=== PATIENT | female | born 1990 | race Hispanic/Latino ===

== ENCOUNTER 2024-12-04 14:52 | Emergency (ER) | payer OTHER, SELFPAY ==
[2024-12-04 14:54] VITALS: BP 118/82
[2024-12-04 15:28] LABS: % Basophils 0.5 % (0-2); % Eosinophils 2.4 % (0-6); % Immature Granulocytes 0.3 % (0-0.5); % Lymphocytes 29.5 % (20.5-51.1); % Monocytes 6.3 % (1.7-9.3); Absolute Basophils 0.1 10^3/uL (0-0.2); Absolute Eosinophils 0.4 10^3/uL (0-0.7); Absolute Immature Granulocytes 0.1 10^3/uL (0-0.05); Absolute Lymphocytes 4.5 10^3/uL (1.2-3.4); Absolute Neutrophils 9.3 10^3/uL (1.4-6.5); Hematocrit 41.5 % (37.0-47.0); Hemoglobin 14.2 g/dL (12.0-16.0); Mean Corp Hgb Conc. 34.2 g/dL (33.0-37.0); Mean Corpuscular Hgb 28.7 pg (27.0-31.0); Mean Platelet Volume 8.8 fL (7.4-10.4); Nucleated Red Blood Cells % 0 %; Platelet Count 322 10^3/uL (130-400); Red Blood Cell Count 4.94 10^6/uL (4.20-5.40); Red Cell Dist. Width 11.9 % (11.5-14.5); White Blood Cell Count 15.3 10^3/uL (4.8-10.8)
[2024-12-04 15:37] LABS: HCG, Serum Qualitative Screen Negative
[2024-12-04 15:41] LABS: ALT (SGPT) 57 U/L (0-35); AST (SGOT) 37 U/L (14-36); Albumin 4.5 g/dl (3.5-5.0); Alkaline Phosphatase 59 U/L (38-126); Blood Urea Nitrogen 6 mg/dl (7-17); Calcium 9.9 mg/dl (8.4-10.2); Carbon Dioxide 22 mmol/L (22-30); Chloride 108 mmol/L (98-107); Glucose 105 mg/dl (70-99); Lipase 151 U/L (23-300); Potassium 3.9 mmol/L (3.5-5.1); Sodium 139 mmol/L (135-145); Total Bilirubin 0.8 mg/dl (0.2-1.3); Total Protein 7.6 g/dl (6.3-8.2); eGFR > 60.00
[2024-12-04 15:51] LABS: COVID-19 Antigen Negative (Negative)
[2024-12-04 18:38] LABS: Lithium 0.8 mmol/L (0.6-1.2)
--- NOTE | 2024-12-04 18:41 | ED.GENMED ---
History of Present Illness
General
Chief Complaint: Abdominal Symptoms
Time Seen by Provider: 12/04/24 16:51
History of Present Illness
History of Present Illness:
33-year-old female with history of diabetes presents the emergency department for evaluation of constipation for the past several days. She also reports intermittent nausea and vomiting. She also notes that she is having frequent bouts of
headache, neck pain, and mid back pain that have been ongoing for the past month. She was seen at [facility] twice in the past month for the symptoms with no definitive diagnosis. Approximate 1 month ago she did have labs done at
[facility], I was able to review these in a limited fashion on the patient's [facility] l[facility] on her phone, she had mild leukocytosis as well as transaminitis. She denies any abdominal pain or chest pain at present. No lower urinary tract
voiding symptoms. She is chronically on lithium, states she had a normal level 2 months ago
Review of Systems
Review of Systems
Allergies reviewed?: Yes
All Other Systems: ROS reviewed and negative except as documented in HPI and ROS
Phy Exam
Physical Exam
Physical Exam:
GEN: Well appearing, NAD, WDWN
HEENT: Oral mucosa moist, no scleral icterus
Cardiac: Regular rate and rhythm, no murmurs
Lung: No respiratory distress, no tachypnea
MSK: No gross deformity or injuries, no midline cervical, thoracic, or lumbar spinal tenderness
Skin: Good color, no pallor or jaundice, no rashes
Neuro: AO x3, moves all extremities freely, cranial nerves II through XII grossly intact, bilateral upper and lower extremity strength is 5 out of 5 in all ruggiero
Psych: Calm, cooperative
Course
Orders/Labs/Results
Orders:
Orders
12/04/24 14:58
Electrocardiogram (*1) Urgent
Reason for Study: Shortness of Breath
EKG- Treatment ONCE
Test Result ONCE
CR Chest - 2 Views Urgent
Comment:
Reason For Exam: sob
12/04/24 15:11
COVID-19 Antigen Urgent
Source: Nasal Swab
Complete Blood Count/With Diff Urgent
Comprehensive Metabolic Panel Urgent
HCG, Serum Qualitative Screen Urgent
Lipase Urgent
Matthews Urgent
Comment: ADD ON
Influenza A+B Rapid Molecular Urgent
CAL Source: Nasal Swab
Specimen Description:
12/04/24 18:11
Add On- LAB Urgent
Tests Added?: lithium level
Abnormal Lab Results
12/04/24
15:11
WBC 15.3 H 10^3/uL
(4.8-10.8)
Abs Immat Gran (auto) 0.1 H 10^3/uL
(0-0.05)
Absolute Neuts (auto) 9.3 H 10^3/uL
(1.4-6.5)
Absolute Lymphs (auto) 4.5 H 10^3/uL
(1.2-3.4)
Absolute Monos (auto) 1.0 H 10^3/uL
(0.1-0.6)
Chloride 108 H mmol/L
(98-107)
BUN 6 L mg/dl
(7-17)
Creatinine 0.5 L mg/dL
(0.6-1.0)
Glucose 105 H mg/dl
(70-99)
AST 37 H U/L
(14-36)
ALT 57 H U/L
(0-35)
12/04/24 15:11
12/04/24 15:11
Vital Signs
Initial and Last Documented VS:
Initial Vital Signs
Temp Pulse Resp BP Pulse Ox
97.8 F 103 19 118/82 98
12/04/24 14:54 12/04/24 14:54 12/04/24 14:54 12/04/24 14:54 12/04/24 14:54
Last Documented Vital Signs
Temp Pulse Resp BP Pulse Ox
97.8 F 103 19 118/82 98
12/04/24 14:54 12/04/24 14:54 12/04/24 14:54 12/04/24 14:54 12/04/24 14:54
MDM/Problems Addressed
MDM/Problems Addressed:
She does have mild transaminitis and leukocytosis however these values are essentially unchanged compared to her evaluation to [facility] 1 month ago. Matthews level is therapeutic. Unclear cause of her symptoms however at this time her
workup is benign, self-limited viral syndrome is suspected. Will prescribe NSAIDs for her frequent headache and neck pain, recommend outpatient primary care follow-up
*Critical Care Note
Total Time (30-74mins, 75-104mins- exclusive of procedures): Not Applicable
ED Attending Note
-
Portions of this chart may have been created with voice recognition software.� Occasional wrong word or��sound alike� substitutions may have occurred due to the inherent limitations of voice recognition software.
Discharge Plan
Departure
Patient Disposition: Home (Routine Discharge)
Date of Disposition: 12/04/24
Time of Disposition: 18:41
Patient with high blood pressure during this ER visit?: No
Discharge Problem:
Musculoskeletal pain, Constipation
Instructions: Neck Pain Exercises
Prescriptions:
New
celecoxib [Celebrex] 200 mg capsule
200 mg PO BID Qty: 20 0RF
Referrals:
Saúl White [Other]
Saúl White MD [Family Provider] -
Activity Restrictions/Additional Instructions:
For constipation, please take Miralax once or twice daily and increase your fluid intake
Interventions
Interventions:
*Risk Screen - Suicide Last Done: 12/04/24 14:54
*General Assessment Last Done: 12/04/24 14:54
*Neglect/Abuse Screening Last Done: 12/04/24 18:49
*ED- Fall Risk Assessment Last Done: 12/04/24 18:49
*ED COVID-19 Vaccine History Last Done: 12/04/24 18:49
*Nursing Disposition Last Done: 12/04/24 18:49
QU-Auzmme-Xtvpssdpow Assessment Last Done: 12/04/24 18:32
Discharge Date and Time
Discharge Date/Time: 12/04/24 18:49
Print Language: NAURUAN
== END 2024-12-04 18:49 | disposition home or self-care (01) ==
LOC: EMR 14:52
PROVIDERS: Emergency Medicine; EMERGENCY PHYSICIAN Emergency Medicine; FAMILY PHYSICIAN Internal Medicine
DX: M79.18 Myalgia, other site (principal); K59.00 Constipation, unspecified; E11.9 Type 2 diabetes mellitus without complications
CPT/HCPCS: 99283; 71046; 80053; 80178; 83690; 84703; 85025; 87502; 87811; 93005